=== PATIENT | female | born 1955 | race Caucasian/White ===

== ENCOUNTER 2017-02-12 21:45 | Emergency (ER) | payer MEDICAID ==
[~2017-02-12] VITALS: Ht 160 cm; Wt 84.0 kg
[~2017-02-12 21:45] MED LIST: CEPH-443 PO; HYDR-3498 PO; PHEN95TA29 PO
[2017-02-12 21:56] VITALS: Ht 160 cm; Wt 84.0 kg
[2017-02-12] MEDS ORDERED: KETOROLAC 15 MG INJ IV STA (22:26)
[2017-02-12] MEDS ORDERED: SOD CHLORIDE 0.9% 1,000 ML IV STA (22:26)
[2017-02-12 22:57] LABS: WHITE BLOOD COUNT 7.5 10^3/ul (4.8-10.8)
[2017-02-12 22:58] LABS: BASOPHILS % 0.3 % (0.0-2.0); EOSINOPHILS # 0.1 10^3/ul (0.0-0.5); EOSINOPHILS % 1.3 % (0.0-7.0); HEMATOCRIT 36.6 % (37.0-47.0); HEMOGLOBIN 12.5 g/dl (12.0-16.0); LYMPHOCYTES # 2.2 10^3/ul (0.8-2.9); LYMPHOCYTES % 29.3 % (15.0-51.0); MEAN CORPUSCULAR HEMOGLOBIN 30.6 pg (29.0-33.0); MEAN CORPUSCULAR HGB CONC 34.2 g/dl (32.0-37.0); MEAN CORPUSCULAR VOLUME 89.5 fl (82.0-101.0); MEAN PLATELET VOLUME 9.2 fl (7.4-10.4); MONOCYTE # 0.7 10^3/ul (0.3-0.9); MONOCYTES % 9.1 % (0.0-11.0); NEUTROPHIL # 4.5 10^3/ul (1.6-7.5); NEUTROPHILS % 59.9 % (39.0-77.0); PLATELET COUNT 288 10^3/UL (140-415); RED BLOOD COUNT 4.09 10^6/ul (4.20-5.40); RED CELL DISTRIBUTION WIDTH 13.1 % (11.5-14.5)
[2017-02-12 23:08] LABS: ADD UMIC YES; UR ASCORBIC ACID NEGATIVE (NEGATIVE); UR BILIRUBIN (Dip) NEGATIVE (NEGATIVE); UR BLOOD (Dip) NEGATIVE (NEGATIVE); UR CLARITY SLIGHTLY CLOUDY (CLEAR); UR COLOR YELLOW (YELLOW); UR GLUCOSE (Dip) NEGATIVE (NEGATIVE); UR KETONES (Dip) NEGATIVE (NEGATIVE); UR LEUKOCYTE ESTERASE (Dip) TRACE Leu/ul (NEGATIVE); UR MUCUS FEW /HPF (NONE SEEN); UR NITRITE (Dip) NEGATIVE (NEGATIVE); UR RBC 1 /HPF (0-5); UR SPECIFIC GRAVITY (Dip) 1.018 (1.003-1.030); UR SQUAMOUS EPITHELIAL CELL FEW /HPF (FEW); UR TOTAL PROTEIN (Dip) NEGATIVE (NEGATIVE); UR UROBILINOGEN (Dip) NEGATIVE (NEGATIVE)
[2017-02-12 23:20] LABS: ALBUMIN 4.1 g/dl (3.3-4.9); ALBUMIN/GLOBULIN RATIO 1.13; CALCIUM 8.8 mg/dl (8.4-10.2); CREATININE 0.7 mg/dl (0.44-1.00); POTASSIUM 3.7 mmol/L (3.5-5.1); TOTAL PROTEIN 7.7 g/dl (6.1-8.1)
--- NOTE | 2017-02-12 23:41 | ERD ---
ER Documentation Chief Complaint Date/Time DATE: 02/12/17 TIME: 23:39 Chief Complaint left flank pain x3 weeks HPI This is a 61-year-old female who presents to the emergency room for evaluation of flank pain for the past 3 weeks. The patient does have a previous history of pyelonephritis. She states that she was seen at [facility] and was diagnosed with a kidney infection was given antibiotics. The patient states that her antibiotics are not working and she still having some pain with urination. She denies any fevers and came to the ER for evaluation. The patient denies any alleviating factors for her pain ROS All systems reviewed and are negative except as per history of present illness. Medications Home Meds Active Scripts Phenazopyridine Hcl* (AZO*) 95 Mg Tablet, 95 MG PO TID, #20 TAB Prov:AMANDA NG PA-C 04/23/16 Cephalexin* (Keflex*) 500 Mg Capsule, 500 MG PO TID for 10 Days, #30 CAP Prov:AMANDA NG PA-C 04/23/16 Hydrocodone Bit-Acetaminophen* ([place]*) 5-325 Mg Tab, 1 TAB PO Q6 Y for PAIN, # 12 TAB Prov:NKECHI DORADO MD 06/04/15 Allergies Allergies: Coded Allergies: No Known Allergy (Unverified , 06/04/15) PMhx/Soc Medical and Surgical Hx: pt denies Medical Hx, pt denies Surgical Hx History of Surgery: No Anesthesia Reaction: No Hx Neurological Disorder: No Hx Respiratory Disorders: No Hx Cardiac Disorders: Yes (HTN) Hx Psychiatric Problems: No Hx Miscellaneous Medical Probl: No Hx Alcohol Use: No Hx Substance Use: No Hx Tobacco Use: No Smoking Status: Never smoker Physical Exam Vitals Vital Signs Date Time Temp Pulse Resp B/P Pulse Ox O2 Delivery O2 Flow Rate FiO2 02/12/17 22:36 98.6 64 19 175/83 100 Room Air 02/12/17 21:56 98.0 70 18 208/85 99 Physical Exam INITIAL VITAL SIGNS: Reviewed by me GENERAL: The patient is well developed and appropriate for usual state of health in no apparent distress HEENT: Pupils equal, round, and reactive to light. EOMI. There is no scleral icterus. NECK: C-spine is soft and supple, there is no meningismus. There is no cervical lymphadenopathy. LUNGS: Clear to auscultation bilaterally. There are no rales, wheezes or rhonchi. HEART: Regular rate and rhythm, no murmurs, clicks, rubs or gallops. ABDOMEN: Soft, non-tender, non-distended. There are bowel sounds in all four quadrants. No rebound or guarding. EXTREMITIES: There is no peripheral cyanosis or edema. No focal swelling or erythema. NEUROLOGICAL: The patient moves all four extremities with 5/5 strength. Cranial nerves II - XII are intact. Normal gait. Alert and oriented SKIN: There is no apparent rash or petechiae. HEME/LYMPHATIC: There is no evidence of excessive bruising or lymphedema. PSYCHIATRIC: The patient does not appear anxious or depressed. Result Diagram: 02/12/17223902/12/172239 Results 24 hrs Laboratory Tests Test 02/12/17 22:40 White Blood Count 7.510^3/ul Red Blood Count 4.0910^6/ul Hemoglobin 12.5g/dl Hematocrit 36.6% Mean Corpuscular Volume 89.5fl Mean Corpuscular Hemoglobin 30.6pg Mean Corpuscular Hemoglobin Concent 34.2g/dl Red Cell Distribution Width 13.1% Platelet Count 35787^3/UL Mean Platelet Volume 9.2fl Neutrophils % 59.9% Lymphocytes % 29.3% Monocytes % 9.1% Eosinophils % 1.3% Basophils % 0.3% Nucleated Red Blood Cells % 0.0/100WBC Neutrophils # 4.510^3/ul Lymphocytes # 2.210^3/ul Monocytes # 0.710^3/ul Eosinophils # 0.110^3/ul Basophils # 0.010^3/ul Nucleated Red Blood Cells # 0.010^3/ul Urine Color YELLOW Urine Clarity SLIGHTLY CLOUDY Urine pH 5.0 Urine Specific [place] 1.018 Urine Ketones NEGATIVEmg/dL Urine Nitrite NEGATIVEmg/dL Urine Bilirubin NEGATIVEmg/dL Urine Urobilinogen NEGATIVEmg/dL Urine Leukocyte Esterase TRACELeu/ul Urine Microscopic RBC 1/HPF Urine Microscopic WBC 4/HPF Urine Squamous Epithelial Cells FEW/HPF Urine Mucus FEW/HPF Urine Hemoglobin NEGATIVEmg/dL Urine Glucose NEGATIVEmg/dL Urine Total Protein NEGATIVEmg/dl Sodium Level 145mmol/L Potassium Level 3.7mmol/L Chloride Level 104mmol/L Carbon Dioxide Level 27mmol/L Anion Gap 18 Blood Urea Nitrogen 15mg/dl Creatinine 0.70mg/dl Glucose Level 98mg/dl Calcium Level 8.8mg/dl Total Bilirubin 1.0mg/dl Direct Bilirubin 0.00mg/dl Indirect Bilirubin 1.0mg/dl Aspartate Amino Transf (AST/SGOT) 21IU/L Alanine Aminotransferase (ALT/SGPT) 32IU/L Alkaline Phosphatase 96IU/L Total Protein 7.7g/dl Albumin 4.1g/dl Globulin 3.60g/dl Albumin/Globulin Ratio 1.13 Lipase 107U/L Current Medications Medications (Trade) Dose Ordered Sig/Angie Route PRN Reason Start Time Stop Time Status Last Admin Dose Admin Sodium Chloride (NS) 1,000 ml @ 1,000 mls/hr Q1H STAT IV 02/12/17 22:26 02/12/17 23:25 DC 02/12/17 22:41 Ketorolac Tromethamine (Toradol) 15 mg ONCE STAT IV 02/12/17 22:26 02/12/17 22:27 DC 02/12/17 22:46 Procedures/MDM This 61-year-old female presents to the ER for evaluation of left-sided flank pain. She does have a history of pyelonephritis and is on antibiotics for pyelonephritis. The patient is taking ciprofloxacin at this time. Lab work was obtained which does not show any leukocytosis, and trace leukocyte esterase. Patient was given Toradol in the emergency room and will be discharged at this time with a prescription for Bactrim. Urine cultures were obtained. The patient was advised to discontinue her course of ciprofloxacin and start Bactrim. She did verbalize understanding. Will be discharged at this time Departure Diagnosis: Primary Impression: Flank pain Condition: Stable GONZALO TRIANA DO Feb 12, 2017 23:41
[2017-02-12] MEDS ORDERED: SULF1TAB31 PO (23:42)
[2017-02-12] MEDS ORDERED: NAPR-260 PO (23:42)
[2017-02-12 23:54] VITALS: BP 157/61; PULSE 60; RESP 20; TEMP 98.6
[2017-02-13] MEDS ORDERED: SULF1TAB31 PO (15:18)
[2017-02-13] MEDS ORDERED: NAPR-260 PO (15:18)
== END 2017-02-13 00:01 | disposition home or self-care (01) ==
LOC: E/R 21:45
DX: R10.9 Unspecified abdominal pain (principal); I10 Essential (primary) hypertension
CPT/HCPCS: 36415; 80053; 81001; 83690; 85025; 96374; J1885; J7030; Z7502

== ENCOUNTER 2017-10-31 17:30 | Emergency (ER) | END 2017-10-31 23:50 | disposition home or self-care (01) ==